=== PATIENT | female | born 1985 | race Caucasian/White ===

== ENCOUNTER 2020-08-12 20:53 | Emergency (ER) | payer BC ==
[~2020-08-12] VITALS: Ht 167.6 cm; Wt 65.8 kg
[2020-08-12 21:08] VITALS: BP_SYST 139
--- NOTE | 2020-08-12 21:21 | NUR ---
Patient to ER bed 02 to gown for evaluation. Side rails up.
[2020-08-12] MEDS ORDERED: DIPHENHYDRAMINE HCL 12.5 MG/5 ML UDC PO ONE (21:30)
--- NOTE | 2020-08-12 21:30 | NUR ---
ER at bedside examining patient.
--- NOTE | 2020-08-12 21:35 | NUR ---
Pt presents to the ER c/o laceration to the L 4th digit x today. Pt reports cutting a block of cheese and cutting finger w/ knife. Bleeding controlled w/ gauze and pressure to the finger. Denies pain, recent tetnus vaccine.
--- NOTE | 2020-08-12 22:40 | NUR ---
Patient has a 2 cm laceration to L 4th digit. applied sutures using sterile technique. Edges well approximated. Site cleansed with betadine. No bleeding noted. Pt tolerated well.
[2020-08-12] MEDS ORDERED: LIDOCAINE 1%, 20 ML MDV 20 ML ONE (22:43)
[2020-08-12] MEDS ORDERED: LIDOCAINE 1% 10 MG/ML, 20 ML MDV INJ ONE (23:00)
[2020-08-12 23:11] VITALS: BP_SYST 139
--- NOTE | 2020-08-12 23:11 | NUR ---
Patient given written and verbal discharge instructions and verbalizes understanding. ER MD discussed with patient the results and treatment provided. Patient in stable condition. ID arm band removed. Patient educated on pain management and to follow up with PMD. Opportunity for questions provided and answered. Medication side effect fact sheet provided.
[2020-08-12] MEDS ORDERED: DIPH-TET-PERTUS Vaccine 0.5 ML VIAL (ADACEL) I.M. ONE (23:15)
== END 2020-08-12 23:11 | disposition home or self-care (01) ==
LOC: SED 20:53
DX: S61.217A Laceration without foreign body of left little finger without damage to nail, initial encounter (principal); W26.8XXA Contact with other sharp object(s), not elsewhere classified, initial encounter; Y93.89 Activity, other specified; Y92.89 Other specified places as the place of occurrence of the external cause; Y99.8 Other external cause status
CPT/HCPCS: 12002; 90715; 99282; J2001